=== PATIENT | male | born 1985 | race Two or more races ===

== ENCOUNTER 2016-06-24 09:37 | Emergency (ER) | payer OTHER ==
[2016-06-24] MEDS ORDERED: RX INFO: IV CONTRAST WAS GIVEN 1 EACH MISC MISCELLANE PRN (09:45)
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
[2016-06-24 10:28] LABS: ALT 44 U/L (21-72); AST 45 U/L (17-59); Alcohol <10 mg/dL; Alkaline Phosphatase 76 U/L (38-126); Amylase 76 U/L (30-110); Anion Gap 9 mmol/L; Aty Lym Flag Slight; Blood Urea Nitrogen 9 mg/dL (9-20); CH 30.9; CHCM 34.9; Calcium 8.9 mg/dL (8.4-10.2); Carbon Dioxide 28 mmol/L (22-30); Chloride 108 mmol/L (98-107); Glucose 76 mg/dL (74-99); HCT 37.6 % (39.0-53.0); HDW 2.68; HGB 12.9 gm/dL (13.0-17.5); MCH 30.5 pg (25.0-35.0); MCHC 34.3 g/dL (31.0-37.0); MCV 88.8 fL (80.0-100.0); Mean Platelet Volume 7.1; Non-African American GFR(MDRD) >60 (>60 ml/min/1.73 sqM); Potassium 3.8 mmol/L (3.5-5.1); RBC 4.24 m/uL (4.30-5.90); RDW 12.8 % (11.5-15.5); Sodium 145 mmol/L (137-145); Total Bilirubin 0.5 mg/dL (0.2-1.3); Total Protein 7.3 g/dL (6.3-8.2); WBC 6.8 k/uL (3.8-10.6); WBC (Perox) 6.86
[2016-06-24 10:31] LABS: Partial Thromboplastin Time 26.8 sec (22.0-30.0); Prothrombin Time 10.4 sec (9.0-12.0)
[2016-06-24 10:32] LABS: Creatine Kinase 384 U/L (55-170)
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
[2016-06-24 10:45] LABS: Troponin I <0.012 ng/mL (0.000-0.034)
[2016-06-24 10:47] LABS: Add Differential Manual Differential
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
[2016-06-24 10:50] LABS: Nucleated Red Blood Cells 0 /100 WBC (0-0); Total Cells Counted 100
[2016-06-24 10:51] LABS: Manual Review Performed; Polychromasia Present
[2016-06-24 11:01] LABS: Creatine Kinase MB 3.3 ng/mL (0.0-2.4)
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
[2016-06-24 13:31] VITALS: BP 141/92; PULSE 78; RESP 14; TEMP 98.2
== END 2016-06-24 13:30 | disposition other institution (70) ==
LOC: EC 09:37
DX: S00.83XA Contusion of other part of head, initial encounter (principal); V49.40XA Driver injured in collision with unspecified motor vehicles in traffic accident, initial encounter; Z79.899 Other long term (current) drug therapy; Z79.891 Long term (current) use of opiate analgesic; K76.0 Fatty (change of) liver, not elsewhere classified; R16.0 Hepatomegaly, not elsewhere classified; M43.17 Spondylolisthesis, lumbosacral region
CPT/HCPCS: 99285; 36415; 93005; 86900; 86901; 80053; 82150; 82550; 82553; 83690; 84484; 85025; 85610; 85730; 86850; 80320; 71010; 72170; 73610; 72125; 70450; 74177; Q9967